=== PATIENT | male | born 1980 | race Caucasian/White ===

== ENCOUNTER 2020-01-25 09:27 | Emergency (ER) | payer OTHER ==
--- NOTE | 2020-01-25 10:35 | ER Document Report ---
ED General - General Chief Complaint: Laceration Stated Complaint: FALL,LEFT LEG INJURY Time Seen by Provider: 01/25/20 10:29 Primary Care Provider: DALIA BARNES MD [ACTIVE STAFF] - Follow up as needed - [facility] Notes: 39-year-old male presents to the emergency room today for complaints of a laceration to his left ross that he sustained while he tripped over a metal fireplace last night around 10 PM or 11 PM. He noticed this morning when he got up that the site continue to still bleed. Unsure of his last tetanus, thinks it may have been the last 5 years but is unsure. Denies any numbness or tingling to bilateral lower extremities. Has not tried any [id number] medications. Denies any bleeding disorders. Reports pain is 2 out of 5. Denies fevers, chills, chest pain,palpitations, shortness of breath, dyspnea, nausea, vomiting, diarrhea, abdominal pain, hematuria,blurred vision, double vision, loss of vision, speech changes, LH, dizziness, syncope, headaches, wheezing, ST, URI, neck pain, weakness, bowel or bladder dysfunction, saddle anesthesia, numbness or tingling in bilateral upper or lower extremities equally, muscle paralysis, weakness in bilateral upper or lower extremities equally or rash. Denies IV drug use. MEDICATIONS: I agree with the patient medications as charted by the RN. ALLERGIES: I agree with the allergies as charted by the RN. PAST MEDICAL HISTORY/PAST SURGICAL HISTORY: Reviewed and agree as charted by RN. SOCIAL HISTORY: Reviewed and agree as charted by RN. FAMILY HISTORY: No significant familial comorbid conditions directly related to patient complaint EXAM: Reviewed vital signs as charted by RN. REVIEW OF SYSTEMS:reviewed vital signs by RN CONSTITUTIONAL : Denies fever, chills, or sweats. Denies recent illness. EENT: Denies eye, ear, throat, or mouth pain or symptoms. Denies nasal or sinus congestion or discharge. Denies throat, tongue, or mouth swelling or difficulty swallowing. CARDIOVASCULAR: Denies chest pain. Denies palpitations or racing or irregular heart beat. Denies ankle edema. RESPIRATORY: Denies cough, cold, or chest congestion. Denies shortness of breath, difficulty breathing, or wheezing. GASTROINTESTINAL: Denies abdominal pain or distention. Denies nausea, vomiting, or diarrhea. Denies blood in vomitus, stools, or per rectum. Denies black, tarry stools. Denies constipation. GENITOURINARY: Denies difficulty urinating, painful urination, burning, frequency, blood in urine, or discharge. MUSCULOSKELETAL: Denies back or neck pain or stiffness. Denies joint pain or swelling. SKIN: Reports laceration to left anterior tib-fib. denies rash, lesions or sores. HEMATOLOGIC : Denies easy bruising or bleeding. LYMPHATIC: Denies swollen, enlarged glands. NEUROLOGICAL: Denies confusion or altered mental status. Denies passing out or loss of consciousness. Denies dizziness or lightheadedness. Denies headache. Denies weakness or paralysis or loss of use of either side. Denies problems with gait or speech. Denies sensory loss, numbness, or tingling. Denies seizures. PSYCHIATRIC: Denies anxiety or stress. Denies depression, suicidal ideation, or homicidal ideation. ALL OTHER SYSTEMS REVIEWED AND NEGATIVE. Dictation was performed using [employer] voice recognition software PHYSICAL EXAMINATION: GENERAL: Well-appearing, well-nourished and in no acute distress. HEAD: Atraumatic, normocephalic. EYES: Pupils equal round and reactive to light, extraocular movements intact, sclera anicteric, conjunctiva are normal. ENT: Nares patent, oropharynx clear without exudates. Moist mucous membranes. NECK: Normal range of motion, supple without lymphadenopathy LUNGS: Breath sounds clear to auscultation bilaterally and equal. No wheezes rales or rhonchi. HEART: Regular rate and rhythm without murmurs ABDOMEN: Soft, nontender, nondistended abdomen. No guarding, no rebound. No masses appreciated. Musculoskeletal: Normal range of motion, no pitting or edema. No cyanosis. NEUROLOGICAL: Cranial nerves grossly intact. Normal speech, normal gait. Normal sensory, motor exams PSYCH: Normal mood, normal affect. SKIN: Warm, Dry, normal turgor, no rashes or lesions noted. Left anterior aspect of tibia-fibula with a V-shaped laceration and a linear laceration.squeeze test negative. dtr +2 BLE. Limited APROM. distal pulses + 2 BLE equally. Full motor and sensory function of bilateral lower extremities.Normal gait. No vascular compromise. Peroneal nerve is intact with strong eversion and plantar flexion. Negative anterior drawer test. muscle strength 5/5 in BLE equally. Past Medical History - General Information source: Patient - Social History Smoking Status: Current Every Day Smoker Frequency of alcohol use: Social Drug Abuse: None Family History: Reviewed & Not Pertinent Physical Exam - Vital signs Vitals: Temp Pulse Resp BP Pulse Ox 98.6 F 85 18 148/99 H 99 01/25/20 09:32 01/25/20 09:32 01/25/20 09:32 01/25/20 09:32 01/25/20 09:32 Course - Re-evaluation Re-evalutation: 01/25/20 14:39 Afebrile vital stable no distress. Nursing notes reviewed. Patient's tetanus is updated. X-ray negative for any acute fracture, and foreign body of his left tibia-fibula. patient's laceration within 12 hours he cannot give a definite time when laceration happened. Due to this fact will allow for 6 sutures to not be tight to prevent any abscess and will place patient on oral antibiotics. Please see procedure note for laceration repairs. Discussed with patient that sutures should not be removed within 10 days, he should go to his doctors for a wound check in 2 days. Advised take [id number] Tylenol and ibuprofen for pain control. Take antibiotics with food, eat yogurt daily to prevent loose stool. Advised to wash with soap and water twice a day. After performing a Medical Screening Examination, I estimate there is LOW risk for OPEN FRACTURE, COMPARTMENT SYNDROME, TENDON RUPTURE, ACUTE NEUROVASCULAR INJURY, or RETAINED FOREIGN BODY, thus I consider the discharge disposition reasonable. Also, there is no evidence or peritonitis, sepsis, or toxicity. I have reevaluated this patient multiple times and no significant life threatening changes are noted. The patient and I have discussed the diagnosis and risks, and we agree with discharging home with close follow-up with the understanding that symptoms and presentations can change. We also discussed returning to the Emergency Departme nt immediately if new or worsening symptoms occur. We have discussed the symptoms which are most concerning (e.g., changing or worsening pain, fever, numbness, weakness, cool or painful digits) that necessitate immediate return. - Vital Signs Vital signs: Temp Pulse Resp BP Pulse Ox 98.6 F 80 16 140/86 H 100 01/25/20 12:17 01/25/20 12:17 01/25/20 12:17 01/25/20 12:17 01/25/20 12:17 Procedures - Laceration/Wound Repair Left Leg Time completed: 12:06 Wound length (cm): 1 - cm, #2: "V" 2.5cm Wound's Depth, Shape: Irregular, Flap Laceration pre-procedure: Sterile PPE donned, Sterile drapes applied, Shur-Clens applied Anesthetic type: 1% Lidocaine w/epi Volume Anesthetic (mLs): 4 - mL Wound explored: Clean Irrigated w/ Saline (mLs): 400 - mL Wound Debrided: Minimal Wound Repaired With: Sutures Suture Size/Type: 3:0 - #5 simple suture to "V" flap, #3 simple suture to linear laceration Number of Sutures: 8 Layer Closure?: No Complications: No Notes: 01/25/20 12:07 Verbal consent given for laceration repair. X-ray negative for any foreign body or fracture of the left tib-fib. patient's tetanus updated. LAT placed for approximately 20 minutes prior to procedure. Wound irrigated with 400 amounts of high-pressure normal saline, no foreign body noted. Patient anesthetized with lidocaine with epi. V flap with 5 simple sutures of 3.0 Prolene. Linear laceration that was 1 cm with 3 simple sutures the same contacts. Wound edges well approximated. patient tolerated procedure without incident 01/25/20 12:08 Discharge - Discharge Clinical Impression: Laceration of left leg Condition: Stable Disposition: HOME, SELF-CARE Instructions: Laceration Care ([facility]), Oral Narcotic Medication ([facility]), Prophylactic Antibiotic ([facility]), Soap Cleansing ([facility]), Tetanus Immunization Given ([facility]) Additional Instructions: Your sutures need to be removed in 10 days at your doctors. Please avoid submerging your leg in water. You can wash with soap and water. Please take antibiotics as directed since your wound was close to 12 hours post laceration. Monitor for any signs of infection such as redness, swelling, drainage. Were given a tetanus injection today. please follow-up for a wound check within 3 days with your doctor's office. You can take [id number] Tylenol and ibuprofen for pain control. Return immediately for any new or worsening symptoms. Follow up with primary care provider, call tomorrow to make followup appointment. Prescriptions: Clindamycin HCl 300 mg PO Q6H #28 capsule Referrals: DALIA BARNES MD [ACTIVE STAFF] - Follow up as needed
[2020-01-25] MEDS ORDERED: LIDOCAINE 1% INJ-PF (10 MG/ML) 30 ML SDV INJ ONE (10:44)
[2020-01-25] MEDS ORDERED: DIPH/PERTUSS(ACELL)/TETANUS VAC/PF 0.5 ML SYR (>=10YO) IM ONE (10:44)
[2020-01-25] MEDS ORDERED: LIDOCAINE 4%/TETRACAINE 0.5%/EPI 0.18% 5 ML TOPICAL SOLN TOP ONE (10:45)
--- NOTE | 2020-01-25 11:06 | RADIOLOGY REPORT (SQ) ---
EXAM DESCRIPTION: TIBIA FIBULA LEFT IMAGES COMPLETED DATE/TIME: 01/25/2020 10:54 am REASON FOR STUDY: fell on firepit last night, + lac, r/o f/b and fx COMPARISON: None. NUMBER OF VIEWS: Two views. TECHNIQUE: Two radiographic images acquired of the left tibia and fibula to include the knee and ank le in at least one projection. LIMITATIONS: None. FINDINGS: MINERALIZATION: Normal. BONES: No acute fracture or dislocation. No worrisome bone lesions. SOFT TISSUES: No foreign body. OTHER: No other significant finding. IMPRESSION: No foreign body or fracture. TECHNICAL DOCUMENTATION: JOB ID: [id number] 2010 [employer]- All Rights Reserved Reading location - IP/workstation name: [email or web address]
[2020-01-25] MEDS ORDERED: HYDROCODONE/ACETAMINOPHEN 5-325 MG (6 TAB/ER DISP) PO PRN (12:05)
[2020-01-25 12:18] VITALS: BP 140/86
== END 2020-01-25 12:19 | disposition home or self-care (01) ==
LOC: ER 09:27
DX: S81.812A Laceration without foreign body, left lower leg, initial encounter (principal); W01.198A Fall on same level from slipping, tripping and stumbling with subsequent striking against other object, initial encounter; F17.200 Nicotine dependence, unspecified, uncomplicated; Z23 Encounter for immunization
CPT/HCPCS: 12002; 99283; 73590; 90715; J3490